=== PATIENT | female | born 1995 | race Hispanic/Latino ===

== ENCOUNTER 2017-03-20 02:56 | Outpatient (CLI) | payer MEDICAID ==
[2017-03-20 03:11] VITALS: BP 126/71
--- NOTE | 2017-03-20 07:38 | Ultrasound Report ---
Limited OB ultrasound: There is a workman gestation with a heart rate of 131 beats per minute. The TAMAR is 22.2 cm which is within normal range. Estimated age is 40 weeks 6 days. No other information. BIOPHYSICAL PROFILE: 2 - breathing movements 2 - movements 2 - posture and tone 2 - Qualitative amniotic fluid volume 8 - TOTAL SCORE OF POSSIBLE 8 Heart Rate (bpm) 130
== END 2017-03-20 04:32 | disposition home or self-care (01) ==
LOC: TRG 02:56
PROVIDERS: ATTEND Obstetrics & Gynecology
DX: O48.0 Post-term pregnancy (principal); Z3A.41 41 weeks gestation of pregnancy
CPT/HCPCS: 59025; 76815; 76819

== ENCOUNTER 2022-08-03 08:16 | Inpatient (IN) | payer MEDICAID ==
--- NOTE | 2022-08-03 08:52 | History and Physical Report ---
History of Present Illness Date of examination: 08/03/22 Chief complaint: Presented in labor 7cms History of present illness: EDC Confirmation: 07/28/2022 Past History : 3 Term Births: 1 Premature Births: 0 Living Children: 1 Para: 1 Mult. Births: 0 Prev : 0 Prev. attempt? 0 Aborta: 1 Elect. Ab: 1 Spont. Ab: 0 Ectopics: 0 # 1 Delivery date: 09/2015 Weeks Gestation: 8 Delivery type: EAB Comments: no complications # 2 Delivery date: 03/21/2017 Weeks Gestation: 40 Delivery type: Vaginal Anesthesia type: epidural Delivery location: [facility] weight: 6.75 Comments: none Past Medical History: Reviewed history from 10/04/2021 and no changes required: hx of extensive drug use - heroin, meth and THC Past Surgical History: Reviewed history from 10/04/2021 and no changes required: negative Family History Summary: Reviewed history and no changes required: 12/19/2021 PGM - Has Family History of Lung Cancer - Entered On: 12/05/2021 General Comments - FH: MGF - prostate CA PGM - bone cancer () Social History: extensive drug hx - Heroin, Meth and THC Patient is Smoking History: Patient has never smoked. 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 % Family History Risk Factors: Family History of GA in 1 Female Relative Age < 65: no Family History of GA in 1 Male Relative Age < 55: no No Dietary Counseling Reason: pn yes Alcohol Use: no Drug Use: no Past Medical History Anesthesia Complications: negative Anemia: negative Autoimmune Disorder: negative Bleeding Disorder: negative Blood Transfusions: negative Breast Disease: negative Diabetes: negative Heart Disease: negative Hypertension: negative Hepatitis/Liver Disease: negative Kidney Disease/UTI: negative Neurologic/Epilepsy/Migraines: negative Phlebitis/Varicosities: negative Psychiatric: negative Pulmonary Disease/Asthma: negative Thyroid Disease: negative Hospitalizations: negative 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 Infection History Hx of STD: none HIV Risk Eval: no Hepatitis B Risk Eval: low risk Personal hx. of genital herpes: yes Partner hx. of genital herpes: yes Rash, Viral, or Febrile illness since last LMP? no Varicella/Chicken Pox Status: Previous Disease TB Risk: no Genetic History Congenital Heart Defect: Mom: no Dad: no Denise Disease: Mom: no Dad: no Thalassemia Mom: no Dad: no Neural Tube Defect Mom: no Dad: no Down's Syndrome Mom: no Dad: no Jorge-Sachs Mom: no Dad: no Sickle Cell Disease/Trait Mom: no Dad: no Hemophilia Mom: no Dad: no Muscular Dystrophy Mom: no Dad: no Cystic Fibrosis Mom: no Dad: no Khushboo Chorea Mom: no Dad: no Mental Retardation Mom: no Dad: no Fragile X Mom: no Dad: no Other Genetic/Chromosomal Disorder Mom: no Dad: no Child w/other defect Mom: no Dad: no Other: 's brother has autism Enviromental Exposures Enviromental Exposures Reviewed Xray Exposure: no Medication, drug, or alcohol use since LMP: no Chemical/Other Exposure: no Exposure to Cat Liter: no Hx of Parvovirus (Fifth Disease): no Occupational Exposure to Children: none Current Allergies (reviewed today): No known allergies Past History Past Medical History: other (see HPI) Past Surgical History: other (see HPI) 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) Family/Genetic History: other (see HPI) Social history: other (see HPI) - Obstetrical History Expected Date of Delivery: 07/28/22 Actual Gestation: 40 Week(s) 6 Day(s) : 3 Para: 1 Hx # Term Pregnancies: 1 Number of Pregnancies: 0 Spontaneous Abortions: 0 Induced : 1 Number of Living Children: 1 Medications and Allergies Allergies Allergy/AdvReac Type Severity Reaction Status Date / Time No Known Allergies Allergy Verified 03/20/17 21:35 Home Medications Medication Instructions Recorded Confirmed Last Taken Type No Known Home Medications [No 03/20/17 03/20/17 Unknown History Reported Home Medications] - Vital Signs Vital signs: Vital Signs Pulse Pulse Ox 104 H 94 08/03/22 08:27 08/03/22 08:27 Temp Pulse Resp BP Pulse Ox 97.9 F 98 H 18 105/56 100 08/03/22 08:28 08/03/22 08:47 08/03/22 08:28 08/03/22 08:29 08/03/22 08:47 - Physical Exam Breasts: Positive: normal Cardiovascular: Regular rate Lungs: Positive: Normal air movement Abdomen: Positive: normal appearance, soft Genitourinary (Female): Positive: normal external genitalia, normal perenium Vulva: both: normal Vagina: Positive: normal moisture Uterus: Positive: normal size, normal contour Extremities: Positive: normal Deep Tendon Reflex Grade: Normal +2 - Obstetrical FHR: category 1 Uterine Contraction Monitor Mode: External Cervical Dilatation: 7 Uterine Contraction Pattern: Regular Uterine Tone Measurement Phase: Contraction Uterine Contraction Intensity: Strong/Firm Results All other labs normal. Assessment and Plan 26y/o @ 40+6 presented in active labor. GBS neg. pt plans on natural w/o epidural. Admission orders in EMR. EFW 7#6oz by office u/s 07/30/2022. Anticipate . - Patient Problems (1) Active labor Current Visit: No Status: Acute (2) 40 weeks gestation of Current Visit: Yes Status: Acute
[2022-08-03] MEDS ORDERED: AMPICILLIN/NS 2 GM/100 ML 0 GM/0 ML BAG IV ONE (09:01)
[2022-08-03] MEDS ORDERED: miSOPROStol 200 MCG TAB PR NR (10:00)
[2022-08-03] MEDS ORDERED: fentaNYL 100 MCG/2 ML INJ IV PRN (10:00)
[2022-08-03] MEDS ORDERED: LOPERAMIDE 2 MG CAP PO NR (10:00)
[2022-08-03] MEDS ORDERED: LACTATED RINGERS 1,000 ML IV SCH (10:00)
[2022-08-03] MEDS ORDERED: BUTORPHANOL 2 MG/1 ML INJ IV PRN (10:00)
[2022-08-03] MEDS ORDERED: OXYTOCIN 10 UNIT/1 ML INJ IM NR (10:00)
[2022-08-03] MEDS ORDERED: ePHEDrine SULFATE 50 MG/1 ML INJ IV PRN ×2 (10:00→12:00)
[2022-08-03] MEDS ORDERED: ACETAMINOPHEN 325 MG TAB PO PRN ×2 (10:00→19:22)
[2022-08-03] MEDS ORDERED: METHYLERGONOVINE MALEATE 0.2 MG/ML VIAL IM NR (10:00)
[2022-08-03] MEDS ORDERED: CARBOPROST TROMETHAMINE 250 MCG/1 ML INJ IM NR (10:00)
[2022-08-03] MEDS ORDERED: TERBUTALINE 1 MG/1 ML INJ SUB-Q NR (10:00)
[2022-08-03] MEDS ORDERED: LIDOCAINE (2%) 20 MG/1 ML VIAL 20 ML MDV INFILTRATI NR (10:00)
[2022-08-03] MEDS ORDERED: ONDANSETRON 4 MG/2 ML INJ IV PRN ×2 (10:00→19:22)
[2022-08-03] MEDS ORDERED: OXYTOCIN DRIP 30 UNITS/500 ML BAG IV SCH ×2 (10:00)
[2022-08-03 10:32] LABS: Hematocrit 32.7 % (30.3-42.9); Hemoglobin 10.3 gm/dl (10.1-14.3); Mean Corpuscular HGB Conc 31 % (30-34); Platelet Count 327 K/mm3 (140-440); Red Blood Count 4.77 M/mm3 (3.65-5.03); Red Cell Distribution Width 17.6 % (13.2-15.2)
[2022-08-03 10:34] LABS: Mean Corpuscular Volume 69 fl (79-97)
--- NOTE | 2022-08-03 11:55 | Anesthesia Day of Surgery ---
Anesthesia Day of Surgery - Day of Surgery Patient Examined: Yes Patient H&P Reviewed: Yes Patient is NPO: Yes Beta Blockers: No Cardiac Clearance: No Pulmonary Clearance: No Murali's Test: N/A
--- NOTE | 2022-08-03 11:55 | Anesthesia Consultation ---
Anesthesia Consult and Med Hx Date of service: 08/03/22 - Airway Anesthetic Teeth Evaluation: Good ROM Head & Neck: Adequate Mental/Hyoid Distance: Adequate Mallampati Class: Class II Intubation Access Assessment: Probably Good - Pulmonary Exam CTA: Yes - Cardiac Exam Cardiac Exam: RRR - Pre-Operative Health Status ASA Pre-Surgery Classification: ASA2 Proposed Anesthetic Plan: Epidural - Pulmonary Hx Smoking: No Hx Asthma: No Hx Respiratory Symptoms: No SOB: No COPD: No Home Oxygen Therapy: No Hx Pneumonia: No Hx Sleep Apnea: No - Cardiovascular System Hx Hypertension: No Hx Coronary Artery Disease: No Hx Heart Attack/AMI: No Hx Angina: No Hx Percutaneous Transluminal Coronary Angioplasty (PTCA): No Hx Cardia Arrhythmia: No Hx Pacemaker: No Hx Internal Defibrillator: No Hx Valvular Heart Disease: No Hx Heart Murmur: No - Central Nervous System Hx Seizures: No CVA: No Hx Back Pain: No Hx Psychiatric Problems: No - Gastrointestinal Hx Ulcer: No Hx Gastroesophageal Reflux Disease: No - Endocrine Hx Renal Disease: No Hx End Stage Renal Disease: No Hx Cirrhosis: No Hx Liver Disease: No Hx Insulin Dependent Diabetes: No Hx Non-Insulin Dependent Diabetes: No Hx Thyroid Disease: No Hx Hypothyroidism: No Hx Hyperthyroidism: No - Hematic Hx Anemia: No Hx Sickle Cell Disease: No - Other Systems Hx Alcohol Use: No Hx Substance Use: No Hx Cancer: No Hx Obesity: No
--- NOTE | 2022-08-03 11:58 | Progress Note ---
Labor Epidural - Labor Epidural Start Time: 11:35 Stop Time: 11:43 Performed by:: MERY DUDLEY Procedure: Epidural Requested for Labor Pain. H&P and PT Chart reviewed and consent obtained. Time out performed and the procedure was explained, all questions answered. Patient was placed in a sitting position with monitors applied. The PTs back was prepped and draped in usual sterile fashion. The Skin was localized with 3 mL of 1% lidocaine at L3-L4. A 17-gauge Touhy epidural needle was advanced to THALIA with saline at 7 cm and no blood/CSF was noted via epidural needle. Epidural catheter was advanced to 12 cm. There was negative aspiration for blood and CSF in the catheter and negative response to a test dose of 3 ml 1.5% lidocaine w/ Epi and a sterile dressing was applied Patient tolerated the procedure well and there were no immediate complications noted.
[2022-08-03] MEDS ORDERED: NALOXONE 0.4 MG/1 ML INJ IV PRN (12:00)
[2022-08-03] MEDS ORDERED: fentaNYL-BUPIV 2 MCG/ML-0.125% 200 MCG/100 ML BAG EPIDURAL SCH (12:00)
[2022-08-03] MEDS ORDERED: MINERAL OIL 30 ML ORAL LIQD ONE (14:19)
--- NOTE | 2022-08-03 14:49 | Procedure Note ---
OB Delivery Note - Delivery Date of Delivery: 08/03/22 Hand Buffer: ROSELINE ACUÑA Estimated blood loss: 100cc - Vaginal Delivery presentation: vertex Delivery position: OA Intrapartum events: none Delivery induction: none Delivery augmentation: rupture of membranes Delivery monitor: external FHT, external uterine Route of delivery: Delivery placenta: spontaneous Delivery cord: nuchal cord, 3 umbilical vessels Episiotomy: none Delivery laceration: none Anesthesia: epidural Delivery comments: Male born over intact perineum, nuchal cord x 1 somersaulted through. placed skin to skin on mother's abdomen, dried and stimulated. 3 vessel cord clamped and cut after cessation of pulsation. cord blood collected. placenta delivered intact and complete. no lacerations to repair. mother and baby LDR stable. all counts correct. - A at 1 minute: 8 at 5 minutes: 9 Gender: Male (8#7oz)
--- NOTE | 2022-08-03 17:42 | Post Anesthesia Evaluation ---
- Post Anesthesia Evaluation Patient Participated: Yes Airway Patent: Yes Stable Respiratory Function: Yes Nausea/Vomiting: No Temp > 96.8F: Yes Pain Manageable: Yes Adequeate Hydration: Yes Anesthesia Complications: No Block Receding Appropriately: Yes Patient on Ventilator: No
[2022-08-03] MEDS ORDERED: MAGNESIUM HYDROXIDE (MOM) ORAL LIQD UDC PO PRN (19:22)
[2022-08-03] MEDS ORDERED: diphenhydrAMINE 25 MG CAP PO PRN (19:22)
[2022-08-03] MEDS ORDERED: PROMETHAZINE 25 MG TAB PO PRN (19:22)
[2022-08-03] MEDS ORDERED: WITCH HAZEL/ GLYCERIN PAD TP PRN (19:22)
[2022-08-03] MEDS ORDERED: BENZOCAINE/MENTHOL 20/0.5% TOP SPRAY 56 GM TP PRN (19:22)
[2022-08-03] MEDS ORDERED: LANOLIN/ZINC/DIMETHICONE (LANSINOH) 7 GM TP PRN (19:22)
[2022-08-03] MEDS ORDERED: MINERAL OIL 30 ML ORAL LIQD PO PRN (22:00)
[2022-08-03] MEDS: DOCUSATE SODIUM 100 MG CAP PO SCH (23:54)
[2022-08-03] MEDS: IBUPROFEN 800 MG TAB PO SCH (23:54)
[2022-08-04 03:46] LABS: Hematocrit 25.2 % (30.3-42.9); Hemoglobin 7.9 gm/dl (10.1-14.3)
[2022-08-04] MEDS: IBUPROFEN 800 MG TAB PO SCH ×2 (09:06→14:59)
[2022-08-04] MEDS: DOCUSATE SODIUM 100 MG CAP PO SCH (09:06)
[2022-08-04] MEDS ORDERED: PRENATAL VIT27-FE FUMARATE-FOLIC ACID VIT TAB PO SCH (10:00)
[2022-08-04] MEDS ORDERED: FERROUS SULFATE 325 MG TAB PO SCH (14:00)
[2022-08-04] MEDS ORDERED: TETANUS,DIPH,PERTUSS(ACELL) VACCINE 0.5 ML SYRINGE IM ONE (14:50)
--- NOTE | 2022-08-04 15:41 | Discharge Summary ---
Providers - Providers Date of Admission: 08/03/22 08:44 Date of discharge: 08/04/22 Attending physician: INDERJIT MARIE 08/03/22 19:22 Consult to Administrative Fellow [CONS] Routine Reason For Exam: assistance with , SNS Primary care physician: INDERJIT MARIE Hospitalization Condition: Good Hospital course: This is a 26-year-old female now who presented in active labor 7 cm she steadily progressed to complete and delivered a viable male infant without any complications. Today patient is stable no complaints minimal bleeding and desires discharge home. H&H was noted to be 7.9 however patient denies lightheadedness or dizziness. Breasts: Present: normal. Absent: swelling, mass, pain, engorged Cardiovascular: Present: Regular rate Lungs: Present: Normal air movement Abdomen: Present: normal appearance, soft. Absent: distention, tenderness, guarding Uterus: Present: fundal height below umbilicus. Absent: tenderness Extremities: Present: normal. Absent: tenderness Disposition: 01 HOME / SELF CARE / HOMELESS Final Discharge Diagnosis (Prints w/discharge instructions): Spontaneous vaginal delivery - Discharge Diagnoses (1) Anemia Status: Acute Qualifiers: Other causes of anemia: acute posthemorrhagic Comment: Asymptomatic and not present on admission (2) Spontaneous vaginal delivery Status: Acute Core Measure Documentation - Palliative Care Palliative Care/ Comfort Measures: Not Applicable - Core Measures Any of the following diagnoses?: none Exam - Constitutional Vitals: Temp Pulse Resp BP Pulse Ox 97.6 F 78 18 102/59 93 08/04/22 11:38 08/04/22 11:38 08/04/22 11:38 08/04/22 11:38 08/04/22 11:38 Plan Follow up with: INDERJIT MARIE MD [Primary Care Provider] - 7 Days Prescriptions: Lidocain2.5%/Prilocai2.5% [Emla] 5 gm TP ONCE #1 tube
[2022-08-04 15:44] VITALS: BP 108/60
--- NOTE | 2022-08-04 15:48 | Discharge Summary ---
Providers - Providers Date of Admission: 08/03/22 08:44 Date of discharge: 08/04/22 Attending physician: INDERJIT MARIE 08/03/22 19:22 Consult to Reproducer [CONS] Routine Reason For Exam: assistance with , SNS Primary care physician: INDERJIT MARIE Hospitalization Condition at discharge: Good Disposition: 01 HOME / SELF CARE / HOMELESS - Discharge Diagnoses (1) Anemia Status: Acute Qualifiers: Other causes of anemia: acute posthemorrhagic Comment: Asymptomatic and not present on admission (2) Spontaneous vaginal delivery Status: Acute Plan - Discharge Medications Prescriptions: Lidocain2.5%/Prilocai2.5% [Emla] 5 gm TP ONCE #1 tube - Provider Discharge Summary Activity: no sex for 6 weeks, no heavy lifting 4 weeks, no strenuous exercise Diet: routine Instructions: routine Additional instructions: [] Smoking cessation referral if applicable(refer to patient education folder for contact #) [] Refer to [facility]'s [facility] Booklet Call your doctor immediately for: * Fever > 100.5 * Heavy vaginal bleeding ( >1 pad per hour) * Severe persistent headache * Shortness of breath * Reddened, hot, painful area to leg or breast * Drainage or odor from incision. * Keep incision clean and dry at all times and follow doctor's instructions regarding bathing/showering - Follow up plan Follow up: INDERJIT MARIE MD [Primary Care Provider] - 7 Days (Call office Saturday to make appointment for circumcision. )
== END 2022-08-04 18:48 | disposition home or self-care (01) | DRG 774 ==
LOC: TRG 08:16 → APU 08:19 → LD 08:44 → TRG 09:45 → OB 18:54
PROVIDERS: ADMIT Obstetrics & Gynecology; ATTEND Obstetrics & Gynecology
PROC: 10E0XZZ Delivery of Products of Conception, External Approach (ICD-10-PCS; principal; 2022-08-03)
PROC: 3E0R3BZ Introduction of Anesthetic Agent into Spinal Canal, Percutaneous Approach (ICD-10-PCS; 2022-08-03)
PROC: 00HU33Z Insertion of Infusion Device into Spinal Canal, Percutaneous Approach (ICD-10-PCS; 2022-08-03)
PROC: 3E0234Z Introduction of Serum, Toxoid and Vaccine into Muscle, Percutaneous Approach (ICD-10-PCS; 2022-08-04)
PROC: 3E0234Z Introduction of Serum, Toxoid and Vaccine into Muscle, Percutaneous Approach (ICD-10-PCS; 2022-08-04)
DX: O69.81X0 Labor and delivery complicated by cord around neck, without compression, not applicable or unspecified (principal); O98.32 Other infections with a predominantly sexual mode of transmission complicating childbirth; Z20.822 Contact with and (suspected) exposure to COVID-19; Z3A.40 40 weeks gestation of pregnancy; Z37.0 Single live birth; Z23 Encounter for immunization; A60.00 Herpesviral infection of urogenital system, unspecified; O90.81 Anemia of the puerperium; D62 Acute posthemorrhagic anemia
CPT/HCPCS: 36415; 85014; 85018; 85027; 85461; 86592; 86850; 86870; 86900; 86901; 96360; 96361; 96365; 96374; G0378; J3490; J2790; J3010; U0003